=== PATIENT | female | born 1960 | race Caucasian/White ===

== ENCOUNTER → 2016-10-12 | Outpatient (CLI) | payer MEDICARE ==
--- NOTE | 2016-10-12 10:21 | KCIC ---
PROCEDURE Right ankle soft tissue ultrasound. HISTORY Localized mass and swelling of the right ankle. TECHNIQUE Real-time ultrasound imaging of the right ankle/ foot in the area of concern is performed. Imaging of contralateral side performed for comparison. COMPARISON None. FINDINGS No significant subcutaneous fluid collection. No evidence of mass. IMPRESSION Negative right ankle ultrasound. Electronically signed by: Pierce Vo MD (Oct 12, 2016 10:20:37)
--- NOTE | 2016-10-12 11:39 | KCIC ---
PROCEDURE MRI lumbar spine without contrast. HISTORY Low back pain, chronic low back pain, pain in hips in legs TECHNIQUE Sagittal and axial T1 and T2 and sagittal STIR images were acquired of the lumbar spine. Contrast: None COMPARISON None FINDINGS Lumbar vertebral body stature and AP alignment are preserved. Conus terminates normally at L1. There is no significant focal marrow edema. There is fairly diffuse edema of the central and right paracentral subcutaneous fat of the lower back. There is moderate to severe degenerative disc disease at L5-S1, moderate degenerative disc disease at L4-5. There is small hemangioma of T12 vertebral body. There is degenerative endplate change at L4-5 and L5-S1. L2-3: Spinal canal and the neural foramina are adequate. There is mild facet degenerative change and buckling of the ligamentum flavum as well as prominence of posterior epidural fat. L3-4: There is minimal disc osteophyte complex. There is left posterior posterior annular tear. Neural foramina are overall adequate. There is mild prominence of posterior epidural fat, buckling of the ligamentum flavum, and facet hypertrophic change. There is overall mild attenuation from posteriorly by epidural lipomatosis. L4-5: There is minimal disc osteophyte complex and shallow bulge/protrusion greater in the right lateral recess, near descending right L5 nerve root. There is mild narrowing of the far lateral recesses greater on the right. There is mild narrowing of the right neural foramen, left neural foramen adequate. L5-S1: There is minimal disc osteophyte complex and bulge. There is mild buckling of the ligamentum flavum and facet hypertrophic change greater on the left. There is mild narrowing the lateral recesses bilaterally, apparently light contact of the descending S1 nerve roots in the lateral recesses. There is also mild narrowing of the transverse dimension of the central canal. There is moderate right and mild left neural foramina compromise. IMPRESSION 1. There is moderate to severe degenerative disc disease at L5-S1 and to a lesser degree L4-5. There is mild spondylosis. 2. There is mild narrowing of the far lateral recesses greater on the right at L4-5, bulge/protrusion near the descending right L5 nerve root. There is also mild narrowing of the lateral recesses bilaterally at L5-S1, light contact of the descending S1 nerve roots. There is mild attenuation of the thecal sac from posteriorly at the L3-4 level by epidural lipomatosis. 3. There is moderate narrowing of the right L5-S1 neural foramen, minimal narrowing on the left at L5-S1 and on the right at L4-5. 4. There is nonspecific edema of the posterior subcutaneous fat although possibly due to dependent edema assuming there is no clinical suspicion for underlying soft tissue infection. Electronically signed by: Jose Alejandro Duncan MD (Oct 12, 2016 11:37:42)
--- NOTE | 2016-10-12 12:13 | KCIC ---
Bilateral digital screening mammograms with CAD: HISTORY Routine screening. COMPARISON No previous examinations available for comparison. FINDINGS Breast density category C. The skin and nipples show no abnormalities. No abnormal lymph nodes are seen in the axilla. The breast parenchyma shows heterogeneous density. There are nodular densities consistent with intramammary lymph nodes in the upper-outer quadrants bilaterally. There are also however nodular appearing densities centrally in the right breast on CC view just medial to midline and inferior in the left breast on obliques view. Further evaluation with additional views and ultrasound is recommended. There are no other dominant masses, suspicious calcifications or architectural distortions. Benign appearing calcifications are present. IMPRESSION Small nodular densities suggested in the medial right breast on CC view and in the inferior left breast on MLO view. Recommend further evaluation with additional views and ultrasound. This study was interpreted with the benefit of Computerized Aided Detection (CAD). Mammography is not 100% sensitive in detecting breast cancer. Therefore, a self breast exam and a clinical breast exam are very important. A negative mammogram does not negate a clinically suspicious finding and should not result in a delay in biopsying a clinically suspicious abnormality. BI-RADS category 0: Incomplete. Additional imaging is recommended. This patient's information has been entered into a reminder system for the patient to be notified with the results of this examination and a target date for her next mammograms. Electronically signed by: Paola Roth MD (Oct 12, 2016 12:11:19)
== END | disposition home or self-care (01) ==
LOC: KCIC US 09:10
PROVIDERS: ATTEND Family Medicine
DX: Z12.31 Encounter for screening mammogram for malignant neoplasm of breast (principal); M25.471 Effusion, right ankle; R22.9 Localized swelling, mass and lump, unspecified; M54.5 Low back pain
CPT/HCPCS: 72148; 76881; G0202; 77067

== ENCOUNTER → 2017-08-22 | Outpatient (CLI) | payer MEDICARE ==
--- NOTE | 2017-08-22 11:12 | KCIC ---
THYROID ULTRASOUND History: Thyroid mass Comparison: None. Technique: Multiple grayscale and color Doppler images of the thyroid gland were obtained. Findings: Measurements length, AP, and transverse, respectively, unless otherwise stated. The right thyroid lobe measures 4.4 x 1.6 x 1.5 cm and is relatively homogeneous. No discrete thyroid nodule is seen. The left thyroid lobe measures 4.2 x 1.3 x 1.6 cm and is relatively homogeneous. No discrete thyroid nodule is identified. The The isthmus measures 4 mm and is homogeneous. Color Doppler interrogation of the thyroid does not demonstrate hypervascularity. IMPRESSION: Normal thyroid ultrasound. Electronically signed by: Pierce Vo MD (08/22/2017 11:09 AM) [id number]
--- NOTE | 2017-08-22 11:37 | KCIC ---
EXAM: Bilateral knees, frontal standing view. HISTORY: Pain. COMPARISON: None. FINDINGS: A frontal standing view both knees is obtained. There is moderate medial compartment predominant tricompartmental spurring of both knees. There is no fracture, dislocation or subluxation. IMPRESSION: Moderate medial compartment predominant tricompartmental osteoarthritis of both knees. Electronically signed by: Linh Mullins MD (08/22/2017 11:34 AM) [id number]
--- NOTE | 2017-08-22 11:40 | KCIC ---
EXAM: Head CT without contrast. HISTORY: Leg weakness. TECHNIQUE: Computed tomographic images of the head were obtained without contrast. *One or more of the following individualized dose reduction techniques were utilized for this examination: 1. Automated exposure control. 2. Adjustment of the mA and/or kV according to patient size. 3. Use of iterative reconstruction technique. COMPARISON: None. FINDINGS: There is no acute or subacute extra-axial or intraparenchymal hemorrhage. There is no mass effect or midline shift. There is no hydrocephalus. The flores-white matter differentiation pattern is intact. The visualized portions of the orbits, paranasal sinuses and mastoid air cells are unremarkable. No suspicious calvarial lesion is seen. IMPRESSION: No acute intracranial findings. Electronically signed by: Linh Mullins MD (08/22/2017 11:37 AM) [id number]
--- NOTE | 2017-08-22 15:46 | KCIC ---
Right breast ultrasound: Reason for examination: Follow-up nodule. Comparison is made to previous study dated 10/31/2016. Ultrasound examination was performed in the area of concern at the 12:00 position 4 cm from the nipple. There continues to be a small hypoechoic nodule measuring 6.2 mm in greatest dimension which has shown interval decrease in overall size. No new cystic or solid lesions are seen. No abnormal lymph nodes are seen in the axilla. IMPRESSION: Continued presence of a small hypoechoic lesion in the 12:00 position which shows interval decrease in size consistent some fibrocystic change. No suspicious abnormality seen. Recommend routine mammographic follow-up. BI-RADS Category 2: Benign. "Our facility is accredited by the [employer] Mammography Program." This patient's information has been entered into a reminder system for the patient to be notified with the results of her examination and a target date for the next mammogram. Electronically signed by: Yisel Roth MD (08/22/2017 12:52 PM) [id number]
== END | disposition home or self-care (01) ==
LOC: KCIC US 10:25
PROVIDERS: ATTEND Family Medicine
DX: E07.89 Other specified disorders of thyroid (principal); M17.0 Bilateral primary osteoarthritis of knee; N63.10 Unspecified lump in the right breast, unspecified quadrant; R53.1 Weakness
CPT/HCPCS: 70450; 73565; 76536; 76641